=== PATIENT | male | born 1985 | race Caucasian/White ===

== ENCOUNTER → 2017-06-04 | Outpatient (REF) | payer OTHER | LOC: M LAB REF 13:40 | DX: Z30.2 Encounter for sterilization (principal) | CPT/HCPCS: 88302 ==

== ENCOUNTER → 2017-07-12 | Outpatient (CLI) | payer OTHER | LOC: M RAD 07:30 | DX: N50.819 Testicular pain, unspecified (principal) ==

== ENCOUNTER 2017-08-02 08:24 | Day surgery (SDC) | payer OTHER ==
[2017-08-02] MEDS: LR 1,000 ML IV (09:06)
[2017-08-02] MEDS ORDERED: GLYCOPYRROLATE INJ 0.2 MG/ML 2 ML VIAL As Ordered (11:19)
[2017-08-02] MEDS ORDERED: ePHEDrine SULFATE 25 MG/5 ML(5MG/ML) SYRINGE As Ordered (11:22)
[2017-08-02] MEDS: BUPIVACAINE HCL 0.25% 30 ML VIAL As Ordered (11:33)
[2017-08-02] MEDS ORDERED: fentaNYL 250 MCG/5 ML INJECTION (J3010) As Ordered (11:39)
[2017-08-02] MEDS ORDERED: MIDAZOLAM INJ 2 MG/2 ML VIAL (J2250) As Ordered (11:39)
[2017-08-02] MEDS ORDERED: LIDOCAINE 2% INJ 100 MG/5 ML SDV (FOR ANES.) As Ordered (11:39)
[2017-08-02] MEDS ORDERED: ONDANSETRON 4MG/2ML VIAL (J2405) As Ordered (11:39)
[2017-08-02] MEDS ORDERED: dexameTHASONE 4 MG/ML 1ML VIAL (J1100) As Ordered (11:39)
[2017-08-02] MEDS ORDERED: PROPOFOL 200 MG/20 ML VIAL As Ordered (11:39)
[2017-08-02] MEDS ORDERED: ONDANSETRON 4MG/2ML VIAL (J2405) IV (12:45)
[2017-08-02] MEDS ORDERED: fentaNYL 100 MCG/2 ML INJECTION (J3010) IV (12:45)
[2017-08-02] MEDS ORDERED: LR 1,000 ML IV (12:45)
[2017-08-02] MEDS ORDERED: NORCO, ANEXSIA 5/325MG TABLET (HYDROcodone/ACETAMINOPHEN) PO ×2 (12:45→13:00)
[2017-08-02] MEDS ORDERED: IBUPROFEN 600 MG TAB PO (13:00)
[2017-08-02] MEDS ORDERED: ACETAMINOPHEN TAB 650MG DOSE (2X325MG) PO (13:00)
== END 2017-08-02 14:18 | disposition home or self-care (01) ==
LOC: M SDC 08:24
DX: N50.1 Vascular disorders of male genital organs (principal); G43.909 Migraine, unspecified, not intractable, without status migrainosus
CPT/HCPCS: 55040

== ENCOUNTER → 2017-08-09 | Outpatient (REF) | payer OTHER ==
[2017-08-09 12:30] LABS: SEMEN APPEARANCE OPAQUE (OPAQUE); SEMEN VISCOSITY LIQUID (LIQUID); SEMEN VOLUME 1.9 ml (4.0-5.0)
[2017-08-09 12:31] LABS: IMMMOTILE SPERM CENTRIFUGED ABSENT (ABSENT); IMMOTILE SPERM ABSENT (ABSENT); MOTILE SPERM ABSENT (ABSENT); MOTILE SPERM CENTRIFUGED ABSENT (ABSENT); WBC CONCENTRATION <=1 M/ml (<=1 M/ml)
== END ==
LOC: M LAB REF 11:51
DX: Z30.2 Encounter for sterilization (principal)

== ENCOUNTER → 2020-10-22 | Outpatient (CLI) | payer OTHER | LOC: M PLAIMG 09:31 | PROVIDERS: ATTEND Chiropractor | DX: M51.36 Other intervertebral disc degeneration, lumbar region (principal); M50.33 Other cervical disc degeneration, cervicothoracic region; M99.01 Segmental and somatic dysfunction of cervical region; M43.16 Spondylolisthesis, lumbar region ==

== ENCOUNTER → 2024-02-19 | Outpatient (CLI) | payer OTHER | LOC: M PLAIMG 09:31 | PROVIDERS: ATTEND Physician Assistant | DX: M43.16 Spondylolisthesis, lumbar region (principal) ==

== ENCOUNTER → 2024-02-21 | Outpatient (CLI) | payer OTHER | LOC: M CARPUL 08:23 | PROVIDERS: ATTEND Internal Medicine Cardiovascular Disease | DX: I45.10 Unspecified right bundle-branch block (principal); R01.2 Other cardiac sounds; R94.31 Abnormal electrocardiogram [ECG] [EKG]; I35.1 Nonrheumatic aortic (valve) insufficiency; I08.1 Rheumatic disorders of both mitral and tricuspid valves; I37.1 Nonrheumatic pulmonary valve insufficiency ==

== ENCOUNTER → 2024-05-30 | Outpatient (CLI) | payer OTHER | LOC: M RAD 15:45 | PROVIDERS: ATTEND Physician Assistant | DX: S62.316A Displaced fracture of base of fifth metacarpal bone, right hand, initial encounter for closed fracture (principal); Y93.9 Activity, unspecified; Y92.9 Unspecified place or not applicable ==